=== PATIENT | male | born 1970 | race Caucasian/White ===

== ENCOUNTER 2024-01-10 09:00 | Outpatient (OUT) | payer BC, SELFPAY ==
[2024-01-10 09:27] LABS: Basophils Percent Auto 0.7 % (0.2-2.0); Eosinophils Absolute Auto 0.3 10^3/uL (0.0-0.7); Eosinophils Percent Auto 5.9 % (0.9-7.0); Hematocrit 47.9 % (42.0-54.0); Hemoglobin 16.5 g/dL (14.0-18.0); Immature Granulocytes Abs Auto 0.02 10^3/uL (0.00-0.03); Immature Granulocytes Pct Auto 0.5 % (0.0-0.5); Lymphocytes Absolute Auto 1.9 10^3/uL (1.2-3.8); Lymphocytes Percent Auto 42.7 % (20.5-60.0); Mean Corpuscular HGB Conc 34.4 g/dL (29.9-35.2); Mean Corpuscular Hemoglobin 31.2 pg (25.9-34.0); Mean Corpuscular Volume 90.5 fL (80.0-94.0); Mean Platelet Volume 9.4 fL (9.5-13.5); Monocytes Absolute Auto 0.5 10^3/uL (0.3-0.8); Monocytes Percent Auto 10.8 % (1.7-12.0); Neutrophils Absolute Auto 1.8 10^3/uL (1.4-6.5); Neutrophils Percent Auto 39.4 % (43.0-75.0); Platelet Count 112 10^3/uL (150-450); Red Blood Count 5.29 10^6/uL (4.70-6.10); Red Cell Distribution Width 13.1 % (11.0-15.0); White Blood Count 4.4 10^3/uL (4.0-11.0)
[2024-01-10 10:08] LABS: Alanine Aminotransferase 70 U/L (16-63); Albumin Level 3.5 g/dL (3.4-5.0); Alkaline Phosphatase 40 U/L (46-116); Anion Gap 10.6; Aspartate Amino Transferase 42 U/L (15-37); BUN Creatinine Ratio 13.4; Bilirubin Total 0.6 mg/dL (0.2-1.0); Calcium 8.6 mg/dL (8.5-10.1); Carbon Dioxide 29.7 mmol/L (21.0-32.0); Chloride 105 mmol/L (98-107); Estimated GFR (African America >60 (>=60); Estimated GFR (Non-African Ame >60 (>=60); Globulin 3.6 g/dL; Glucose 106 mg/dL (74-106); Potassium 4.3 mmol/L (3.5-5.1); Sodium 141 mmol/L (136-145); Total Protein 7.1 g/dL (6.4-8.2)
== END 2024-01-10 09:01 | disposition home or self-care (01) ==
LOC: LAB 09:07
PROVIDERS: PCP Family Medicine; Visit Provider Nurse Practitioner Gerontology
DX: D69.6 Thrombocytopenia, unspecified (principal)
CPT/HCPCS: 36415; 80053; 85025

== ENCOUNTER 2025-06-12 13:46 | Outpatient (OUT) | payer BC, SELFPAY ==
--- OUTSIDE RECORDS SUMMARY | 2025-06-12 13:53 | XMS_ITS | Clinical Summary ---
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
--- NOTE | 2025-06-12 14:10 | XR_ITS ---
[facility] [place] [id number] Patient Name: PAULO WOODS MRN: [id number] date: 1970 Sex: M Assigned Patient Location: RAD Current Patient Location: [facility] Accession/Order Number: [id number] Exam Date: 06/12/2025 14:00 Report Date: 06/12/2025 16:06 At the request of: DAMIAN MALIK DO, MS Procedure: XR shoulder LT min 2V 3 views left shoulder HISTORY: Left shoulder pain for 2 weeks. Fell. Adequate bony alignment without acute displaced fracture or significant degeneration or soft tissue evaluate. XR/XR shoulder LT min 2V IMPRESSION: No acute displaced fracture. Impression dictated by: Prieto Melendrez M.D. 06/12/2025 4:06 PM Dictation Location: [place] [address] Electronically authenticated by: [id number] Y Date: 06/12/2025 16:06
== END 2025-06-12 13:47 | disposition home or self-care (01) ==
LOC: RAD 13:50
PROVIDERS: PCP Student in an Organized Health Care Education/Training Program; Visit Provider Student in an Organized Health Care Education/Training Program
DX: M25.512 Pain in left shoulder (principal)
CPT/HCPCS: 73030

== ENCOUNTER 2025-06-17 10:04 | Outpatient (OUT) | payer BC, SELFPAY ==
--- OUTSIDE RECORDS SUMMARY | 2025-06-11 23:59 | XMS_ITS | Continuity of Care Document ---
Author Organization [facility] [place] Address [address] [address] Care Team Providers Care Associate Sales Name Role Phone Lizz Estes Primary Care Physician Encounter FT_ARTUROFIN [id number] Date(s): 06/11/25 - 06/11/25 [facility] [place] [address], [address], [place], [place] [address] Encounter Diagnosis Subcutaneous mass of left upper extremity(Discharge Diagnosis) - 06/11/25 Discharge Disposition: Home (Routine DC) Attending Physician: Vel DAVIDSON MD Referring Physician: Lizz Estes DO Encounter Type: Clinic Allergies, Adverse Reactions, Alerts No Known Allergies Treatment Plan Future Appointments Appointment Date:06/12/2025 01:20:00 PM Scheduled Provider:Lizz Estes DO Location:[facility] Appointment Type: Acute Appointment Date:09/03/2025 08:00:00 AM Scheduled Provider:Lizz Estes DO Location:[facility] Appointment Type: Open Functional Status 06/11/25 Symptomatic After Exposure to ContagionNoSymptomatic After Travel High-Risk Area NoDroplet, Contact Isolation VerificationN/AAirborne,Contact Isolation VerificationN/A Immunizations Given and Recorded VaccineDateStatusRefusal VrycvdSUSF-HmY-9 (COVID-19) mRNA BNT-162b2 vax4// VejwmlajVYBZ-HhZ-5 (COVID-19) mRNA BNT-162b2 vax3//Recorded Not Given VaccineDateStatusRefusal Reasoninfluenza virus vaccine, bsmkstseuau38/9/23Not GivenPatient Refusesinfluenza virus vaccine, inactivated08/26/21Not GivenPatient Refuses Medications cetirizine 10 mg Tab 10 mg = 1 tab(s), Oral, Daily, # 90 tab(s), Refills(s) 0, [id number] 167.8, cm, 11/15/23 11:11:00 EDT, Height/Length Dosing, 109.1, kg, 11/15/23 11:11:00 EDT, Weight Dosing Start Date: 11/15/23 Status: Ordered Medication Dispense Status: Completed Quantity: 90.0 Unit: tab(s) Total Allowed Fills: 1 Fills Dispensed: 0 Indications: Nicotine dependence, other tobacco product, uncomplicated; Essential (primary) hypertension; Acute upper respiratory infection, unspecified; Other injury of unspecified body region, initial encounter; Umbilical hernia without obstruction or gangrene; Body mass index [BMI] 38.0- 38.9, adult; Other obesity due to excess calories; cyclobenzaprine 10 mg Tab 10 mg = 1 tab(s), Oral, TID, PRN for spasm, No drinking or driving on medication., # 30 tab(s), Refills(s) 0, [id number] 167.8, cm, 01/16/24 11:43:00 EDT, Height/Length Dosing, 110.5, kg, 01/16/24 11:43:00 EDT, Weight Dosing Start Date: 01/16/24 Status: Ordered Medication Dispense Status: Completed Quantity: 30.0 Unit: tab(s) Total Allowed Fills: 1 Fills Dispensed: 0 Indications: Dorsalgia, unspecified; Body mass index [BMI] 39.0-39.9, adult; Other obesity due to excess calories; Nicotine dependence, other tobacco product, uncomplicated; Essential (primary) hypertension; Problem List ConditionConfirmationCourseEffective DatesStatusHealth StatusInformantBack pain ConfirmedActiveTubular adenoma of colonConfirmedActiveBMI 38.0-38.9,adult ConfirmedActiveObesity (BMI 30-39.9)ConfirmedActiveEssential hypertension Confirmed02/18/21ActiveVentral herniaConfirmedActiveHyperplastic polyp of sigmoid colonConfirmedActiveHyperplastic rectal polypConfirmedActiveLateral epicondylitis of elbowConfirmedActiveSubcutaneous mass of left upper extremity ConfirmedActiveMass of left upper extremityConfirmedActiveEncounter for surveillance of abnormal neviConfirmedActiveUmbilical herniaConfirmedActive Procedures ProcedureDateRelated DiagnosisBody SiteStatusColonoscopy09/23/21Completed Arthroscopy of knee with meniscus [id number] 1left Vital Signs Most recent to oldest [Reference Range]:1Peripheral Pulse Rate [60-100 bpm]72 bpm (06/11/25 1:12 PM)Respiratory Rate [14-20 br/min]16 br/min (06/11/25 1:12 PM)Blood Pressure [89-139/59-89 mmHg]138/104mmHg (06/11/25 1:12 PM)Blood Pressure LocationRight arm (06/11/25 1:12 PM) Social History Social History TypeResponseSmoking StatusCigars or pipes daily within last 30 days; Type: Cigars entered on: 06/11/25Birth SexMaleSex RepresentationMale (finding) Patient Care team information Care Team Personnel Name: Lizz Estes DO Position: FT Ambulatory - Primary Care Provider? Member Role: Primary Care Physician Address: [address] [place] [address]- Telecom: Care Team Related Persons Name: ANGÉLICA WOODS Name: NAN WOODS Insurance Providers Guarantor name: Health Plan Information #: 1 Payer: [employer] Payer Identifier: [id number] Member Number: [id number] Group Number: [id number] Subscriber Identifier: [id number] Relationship to Subscriber: self Coverage Type: PRIVATE HEALTH INSURANCE Coverage Verification Date: 25 Telecom: [phone] Address: [facility] [id number]
--- OUTSIDE RECORDS SUMMARY | 2025-06-12 23:59 | XMS_ITS | Continuity of Care Document ---
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 Name Role Phone Lizz Estes Primary Care Physician Encounter FT_AMBFIN [id number] Date(s): 06/12/25 - 06/12/25 [facility] [address] [place] [address]- Encounter Diagnosis Acute pain of left shoulder due to trauma(Discharge Diagnosis) - 06/12/25 Subcutaneous mass of left upper extremity(Discharge Diagnosis) - 06/12/25 Thrombocytopenia(Discharge Diagnosis) - 06/12/25 Discharge Disposition: Home (Routine DC) Attending Physician: Lizz Estes DO Encounter Type: Clinic Allergies, Adverse Reactions, Alerts No Known Allergies Treatment Plan Future Appointments Appointment Date:06/17/2025 07:40:00 AM Scheduled Provider: Location:[facility] Appointment Type: Lab Draw Appointment Date:09/03/2025 08:00:00 AM Scheduled Provider:Lizz Estes DO Location:[facility] Appointment Type: Open Future Scheduled Tests Laboratory* Peripheral Smear Review 06/12/25 * CBC w/ Auto Diff 06/12/25 Functional Status 06/12/25 Symptomatic After Exposure to ContagionNoSymptomatic After Travel High-Risk Area NoDroplet, Contact Isolation VerificationN/AAirborne,Contact Isolation VerificationN/A Immunizations Given and Recorded VaccineDateStatusRefusal UefnhdZWCM-IhL-9 (COVID-19) mRNA BNT-162b2 vax4/13/21 CeyugzcaEXFL-KdU-5 (COVID-19) mRNA BNT-162b2 vax3//21Recorded Not Given VaccineDateStatusRefusal Reasoninfluenza virus vaccine, /9/23Not GivenPatient Refusesinfluenza virus vaccine, inactivated08/26/21Not GivenPatient Refuses Medications cetirizine 10 mg Tab 10 mg = 1 tab(s), Oral, Daily, # 90 tab(s), Refills(s) 0, [id number] 167[facility]8, cm, 11/15/23 11:11:00 EDT, Height/Length [...] medication., # 30 tab(s), Refills(s) 0, [id number], 167.8, cm, 01/16/24 11:43:00 EDT, Height/Length [...] left upper extremityConfirmedActiveEncounter for surveillance of abnormal neviConfirmedActiveThrombocytopeniaConfirmedActive Umbilical herniaConfirmedActive Procedures ProcedureDateRelated DiagnosisBody SiteStatusColonoscopy09/23/21Completed Arthroscopy of knee with meniscus [id number] 1left Vital Signs Most recent to oldest [Reference Range]:1Peripheral Pulse Rate [60-100 bpm]81 bpm (06/12/25 12:57 PM)Respiratory Rate [14-20 br/min]18 br/min (06/12/25 12:57 PM)Blood Pressure [89-139/59-89 mmHg]152/86mmHg *HI* (06/12/25 12:57 PM)Blood Pressure LocationRight arm (06/12/25 12:57 PM)SpO2 [89 %]97 % (06/12/25 12:57 PM) Social History Social History TypeResponseSmoking StatusCigars or pipes daily within last 30 days; Type: Cigars entered on: 06/12/25Birth SexMaleSex RepresentationMale (finding) Patient Care team information Care Team Personnel Name: Lizz Estes DO Position: FT Ambulatory - Primary Care Provider? Member Role: Primary Care Physician Address: [address] [place] [address]- Telecom: Care Team Related Persons Name: ANGÉLICA WOODS Name: NAN WOODS Insurance Providers Guarantor name: Health Plan Information #: 1 Payer: Ever[employer] Payer Identifier: [id number] Member Number: [id number] Group Number: [id number] Subscriber Identifier: [id number] Relationship to Subscriber: self Coverage Type: PRIVATE HEALTH INSURANCE Coverage Verification Date: 25 Telecom: [phone] Address: [facility] [id number]
--- OUTSIDE RECORDS SUMMARY | 2025-06-17 10:07 | XMS_ITS | Clinical Summary ---
Author Organization [facility] Address [address] [place] [address] Care Team Providers Care Chart Clerk Name Role Phone Unavailable Primary Care Provider Unavailabl e Social History Tobacco UseTypesPacks/DayYears UsedDateSmoking Tobacco: Never AssessedSex and Gender InformationValueDate RecordedSex Assigned at BirthNot on fileLegal Sex Male09/08/2022 7:01 PM EDTGender IdentityNot on fileSexual OrientationNot on file Plan of Treatment Not on file Insurance
== END 2025-06-17 10:05 | disposition home or self-care (01) ==
LOC: PST 10:04
PROVIDERS: PCP Student in an Organized Health Care Education/Training Program; Visit Provider Surgery
DX: Z01.818 Encounter for other preprocedural examination (principal); R22.32 Localized swelling, mass and lump, left upper limb; R52 Pain, unspecified

== ENCOUNTER 2025-06-26 12:25 | Day surgery (SDC) | payer BC, SELFPAY ==
--- NOTE | 2025-06-26 | OP_ITS ---
OPERATION DATE: 06/26/2025 PREOPERATIVE DIAGNOSIS: Enlarging, painful subcutaneous nodule left upper extremity. POSTOPERATIVE DIAGNOSIS: Enlarging, painful subcutaneous nodule left upper extremity. PROCEDURE: Excisional biopsy subcutaneous nodule left upper extremity. Total length of the lesion was 2 cm. SURGEON: Vel Pace M.D. ESTIMATED BLOOD LOSS: Less than 7 mL. ANESTHESIA: Local with 0.5% Marcaine plain. INDICATIONS AND CONSENT: Patient is a 54-year-old male with a long history, years of a subcutaneous nodule in the left upper arm, lateral, that has been increasing in size. He did have it excised and cauterized many years ago by his primary care doctor, but is unsure what the pathology was at that time. It has become sore overlying the area; otherwise, has had no drainage or bleeding. Indications, risks, benefits, alternatives of proceeding with excisional biopsy under local anesthesia were explained extensively to the patient, including the risks of bleeding, infection, scarring, pain, recurrence, need for further surgery. All of his questions were answered. Informed consent was obtained. PROCEDURE: Patient brought to the procedure room, placed in the supine position. The area was prepped and draped in the usual sterile fashion. It was anesthetized with 0.5% Marcaine plain. The skin overlying the area was attenuated, and it was bulging out with the subcutaneous mass. This attenuated skin was excised in elliptical fashion, overlying the mass, and carried down through subcutaneous using sharp dissection. A well circumscribed, 2 cm soft mass was identified, appeared to contain some dark material, such as blood. There was a feeding vessel going to it that was ligated with a 3-0 Monocryl suture. Once the lesion was completely excised, it was sent off to Pathology. The wound was irrigated. The subcutaneous tissue was re-approximated with interrupted 3-0 Monocryl suture. The skin was then closed with 4-0 nylon mattress and simple sutures. There was good hemostasis. A sterile pressure dressing was applied. Sponge and needle counts were correct x2 per nursing personnel. Patient tolerated procedure well, was sent to recovery room and then discharged to home in good condition. He is to follow up in 10-14 days for suture removal. He is to take ibuprofen for pain, call sooner with problems or questions. CC: Abhinav Sweeney
--- OUTSIDE RECORDS SUMMARY | 2025-06-26 12:28 | XMS_ITS | Clinical Summary ---
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
[2025-06-26 12:30] VITALS: BP 144/79; PULSE 73; TEMP 36.3; O2SAT 95; BMI 39.3
[2025-06-26] MEDS: BUPIVACAINE HCL 0.5% PF 50 MG/10 ML VIAL 5 ML INJ (13:47)
--- NOTE | 2025-06-26 13:48 | PC.NURSE ---
pre-op vitals 139/101 78 20 95% post op 163/93 74 20 97%
== END 2025-06-26 14:10 | disposition home or self-care (01) ==
LOC: SURGOUT 12:26
PROVIDERS: PCP Student in an Organized Health Care Education/Training Program; Visit Provider Surgery
PROC: (CPT 24071; principal; 2025-06-26 13:00)
DX: D18.01 Hemangioma of skin and subcutaneous tissue (principal); R22.32 Localized swelling, mass and lump, left upper limb; M79.602 Pain in left arm
CPT/HCPCS: 24071; 88307; 88341; 88342; J0665